=== PATIENT | male | born 1975 | race African-American/Black ===

== ENCOUNTER 2020-11-30 08:20 | Inpatient (IN) ==
[2020-11-30 09:36] LABS: Basophils % 0.3 % (0.0-0.8); Eosinophils # 0.1 10*3/uL (0.0-0.87); Eosinophils % 1.2 % (0.00-10.9); Hematocrit 35.8 VOL% (42.0-52.0); Hemoglobin 11.7 GM/DL (14.0-18.0); Immature Granulocytes % 0.3 %; Immature Granulocytes Absolute 0.02 #; Lymphocytes # 1.5 10*3/uL (1.4-4.0); Lymphocytes % 20.3 % (21.2-54.2); Mean Corpuscular HGB Conc 32.7 GM/DL (32-36); Mean Corpuscular Volume 78.5 FL (87-102); Mean Platelet Volume 8.2 FL (9.6-12.0); Monocytes % 6.9 % (1.7-12.7); Platelet Count 396 T/CUMM (130-400); Red Blood Count 4.56 MC/CUMM (3.8-5.5); White Blood Count 7.6 T/CUMM (4-12)
[2020-11-30 09:59] LABS: Albumin 3.3 G/DL (3.4-5.0); Bilirubin,Total 0.5 MG/DL (0.20-1.00); Calcium 9.4 MG/DL (8.5-10.1); Osmolality,Calculated 274.7 MOS/KG (273-304); Potassium 3.4 MMOL/L (3.5-5.1); Total Protein 8.7 G/DL (6.4-8.2)
[2020-11-30 10:24] LABS: Bilirubin,Urine Negative (Negative); Blood, Urine Small mg/dL (Negative); Glucose,Urine (UA) Negative (Negative); Ketones,Urine 20 mg/dL (Negative); Mucus,Urine Occasional /LPF (Occasional); Nitrite,Urine Negative (Negative); Protein,Urine 30 MG/DL; RBC,Urine 10 /HPF (0-4); Squamous Epithelial Cell,Urine Occasional /HPF (0-10); Urine Appearance CLEAR (Clear); Urine Color Yellow (Yellow); Urine Specific Gravity 1.017 (1.001-1.035)
[2020-11-30] MEDS ORDERED: PIPERACILLIN/TAZOBACTAM 3,375 MG in SODIUM CHLORIDE 0.9% 100 ML IV STA (11:08)
[2020-11-30] MEDS ORDERED: ONDANSETRON 4 MG/2 ML VIAL IV PRN (11:09)
[2020-11-30] MEDS ORDERED: SODIUM CHLORIDE 0.9% 100 ML IV ONE (11:12)
[2020-11-30] MEDS ORDERED: PIPERACILLIN/TAZOBACTAM 3,375 MG VIAL IV ONE (11:12)
[2020-11-30] MEDS: LACTATED RINGERS 1,000 ML IV SCH ×2 (12:42→16:29)
[2020-11-30] MEDS: PIPERACILLIN/TAZOBACTAM 3,375 MG in SODIUM CHLORIDE 0.9% 100 ML IV SCH ×2 (13:43→20:50)
[2020-12-01] MEDS: LACTATED RINGERS 1,000 ML IV SCH ×3 (02:30→21:15)
[2020-12-01] MEDS: PIPERACILLIN/TAZOBACTAM 3,375 MG in SODIUM CHLORIDE 0.9% 100 ML IV SCH ×3 (02:30→21:15)
[2020-12-01 06:25] LABS: Basophils % 0.5 % (0.0-0.8); Eosinophils # 0.2 10*3/uL (0.0-0.87); Eosinophils % 1.9 % (0.00-10.9); Hematocrit 35.3 VOL% (42.0-52.0); Hemoglobin 12.1 GM/DL (14.0-18.0); Immature Granulocytes % 0.5 %; Immature Granulocytes Absolute 0.04 #; Lymphocytes # 1.7 10*3/uL (1.4-4.0); Lymphocytes % 22.1 % (21.2-54.2); Mean Corpuscular HGB Conc 34.3 GM/DL (32-36); Mean Platelet Volume 10.6 FL (9.6-12.0); Monocytes % 6.5 % (1.7-12.7); Neutrophils % 68.5 % (38.7-73.9); Platelet Count 331 T/CUMM (130-400); Red Blood Count 4.47 MC/CUMM (3.8-5.5); Red Cell Distribution Width 12.5 % (9.3-17.3); White Blood Count 7.8 T/CUMM (4-12)
[2020-12-01 06:45] LABS: Albumin 2.9 G/DL (3.4-5.0); Bilirubin,Total 0.4 MG/DL (0.20-1.00); Calcium 9.2 MG/DL (8.5-10.1); Osmolality,Calculated 279.4 MOS/KG (273-304); Potassium 3.3 MMOL/L (3.5-5.1); Total Protein 7.8 G/DL (6.4-8.2)
[2020-12-01] MEDS: PANTOPRAZOLE 40 MG TABLET PO SCH (08:16)
[2020-12-01] MEDS ORDERED: HYDROmorphone 2 MG/1 ML VIAL IV PRN (20:58)
[2020-12-02] MEDS: PIPERACILLIN/TAZOBACTAM 3,375 MG in SODIUM CHLORIDE 0.9% 100 ML IV SCH ×3 (04:10→21:40)
[2020-12-02 06:47] LABS: Basophils % 0.2 % (0.0-0.8); Eosinophils # 0.2 10*3/uL (0.0-0.87); Eosinophils % 1.7 % (0.00-10.9); Hematocrit 36.6 VOL% (42.0-52.0); Hemoglobin 11.9 GM/DL (14.0-18.0); Immature Granulocytes % 0.2 %; Immature Granulocytes Absolute 0.02 #; Lymphocytes % 22.1 % (21.2-54.2); Mean Corpuscular HGB Conc 32.5 GM/DL (32-36); Mean Corpuscular Volume 78.9 FL (87-102); Mean Platelet Volume 8.2 FL (9.6-12.0); Monocytes % 6.5 % (1.7-12.7); Neutrophils % 69.3 % (38.7-73.9); Platelet Count 386 T/CUMM (130-400); Red Blood Count 4.64 MC/CUMM (3.8-5.5); White Blood Count 8.9 T/CUMM (4-12)
[2020-12-02] MEDS: PANTOPRAZOLE 40 MG TABLET PO SCH (09:39)
[2020-12-02] MEDS: LACTATED RINGERS 1,000 ML IV SCH ×3 (09:39→21:36)
[2020-12-03] MEDS: PIPERACILLIN/TAZOBACTAM 3,375 MG in SODIUM CHLORIDE 0.9% 100 ML IV SCH ×3 (03:49→20:28)
[2020-12-03 07:36] LABS: Basophils % 0.3 % (0.0-0.8); Eosinophils # 0.1 10*3/uL (0.0-0.87); Eosinophils % 1.5 % (0.00-10.9); Immature Granulocytes % 0.3 %; Immature Granulocytes Absolute 0.03 #; Lymphocytes # 2.1 10*3/uL (1.4-4.0); Lymphocytes % 21.6 % (21.2-54.2); Mean Corpuscular HGB Conc 32.4 GM/DL (32-36); Mean Corpuscular Volume 79.4 FL (87-102); Mean Platelet Volume 9.2 FL (9.6-12.0); Monocytes % 6.4 % (1.7-12.7); Neutrophils % 69.9 % (38.7-73.9); Platelet Count 326 T/CUMM (130-400); Red Blood Count 4.66 MC/CUMM (3.8-5.5); Red Cell Distribution Width 12.1 % (9.3-17.3); White Blood Count 9.6 T/CUMM (4-12)
[2020-12-03] MEDS: PANTOPRAZOLE 40 MG TABLET PO SCH (09:30)
[2020-12-03] MEDS: HYDROmorphone 2 MG/1 ML VIAL IV PRN ×2 (12:43→20:29)
[2020-12-03] MEDS: LACTATED RINGERS 1,000 ML IV SCH (20:32)
[2020-12-04] MEDS: PIPERACILLIN/TAZOBACTAM 3,375 MG in SODIUM CHLORIDE 0.9% 100 ML IV SCH ×2 (05:06→11:05)
[2020-12-04] MEDS: HYDROmorphone 2 MG/1 ML VIAL IV PRN ×2 (07:42→11:05)
[2020-12-04 08:19] LABS: Basophils % 0.2 % (0.0-0.8); Eosinophils # 0.1 10*3/uL (0.0-0.87); Eosinophils % 0.8 % (0.00-10.9); Hematocrit 35.8 VOL% (42.0-52.0); Hemoglobin 11.9 GM/DL (14.0-18.0); Immature Granulocytes % 0.4 %; Immature Granulocytes Absolute 0.06 #; Lymphocytes # 1.5 10*3/uL (1.4-4.0); Lymphocytes % 10.7 % (21.2-54.2); Mean Corpuscular HGB Conc 33.2 GM/DL (32-36); Mean Corpuscular Volume 79.2 FL (87-102); Mean Platelet Volume 8.3 FL (9.6-12.0); Monocytes % 4.5 % (1.7-12.7); Neutrophils % 83.4 % (38.7-73.9); Platelet Count 392 T/CUMM (130-400); Red Blood Count 4.52 MC/CUMM (3.8-5.5); Red Cell Distribution Width 12.1 % (9.3-17.3); White Blood Count 13.6 T/CUMM (4-12)
[2020-12-04 08:34] LABS: Calcium 8.6 MG/DL (8.5-10.1); Potassium 3.7 MMOL/L (3.5-5.1)
[2020-12-04] MEDS: PANTOPRAZOLE 40 MG TABLET PO SCH (09:34)
[2020-12-04] MEDS: LACTATED RINGERS 1,000 ML IV SCH ×2 (10:48→14:49)
[2020-12-04] MEDS: ACETAMINOPHEN 325 MG TABLET PO PRN ×2 (12:34→20:35)
[2020-12-04] MEDS ORDERED: MEROPENEM 2,000 MG in SODIUM CHLORIDE 0.9% 100 ML IV SCH (13:30)
[2020-12-04] MEDS: MEROPENEM 500 MG in SODIUM CHLORIDE 0.9% 100 ML IV SCH ×2 (14:03→20:35)
[2020-12-04] MEDS: VANCOMYCIN INJ 1,250 MG in SODIUM CHLORIDE 0.9% 250 ML IV SCH (14:48)
[2020-12-05] MEDS: LACTATED RINGERS 1,000 ML IV SCH ×3 (02:35→14:48)
[2020-12-05] MEDS: MEROPENEM 500 MG in SODIUM CHLORIDE 0.9% 100 ML IV SCH ×4 (02:44→20:38)
[2020-12-05] MEDS: HYDROmorphone 2 MG/1 ML VIAL IV PRN ×4 (03:43→22:24)
[2020-12-05] MEDS: VANCOMYCIN INJ 1,250 MG in SODIUM CHLORIDE 0.9% 250 ML IV SCH ×2 (03:44→15:46)
[2020-12-05 07:55] LABS: Basophils % 0.2 % (0.0-0.8); Eosinophils # 0.1 10*3/uL (0.0-0.87); Eosinophils % 0.5 % (0.00-10.9); Hematocrit 34.2 VOL% (42.0-52.0); Immature Granulocytes % 0.6 %; Immature Granulocytes Absolute 0.11 #; Lymphocytes # 1.5 10*3/uL (1.4-4.0); Lymphocytes % 8.7 % (21.2-54.2); Mean Corpuscular HGB Conc 32.2 GM/DL (32-36); Mean Corpuscular Volume 79.4 FL (87-102); Mean Platelet Volume 8.4 FL (9.6-12.0); Monocytes % 4.9 % (1.7-12.7); Neutrophils % 85.1 % (38.7-73.9); Platelet Count 385 T/CUMM (130-400); Red Blood Count 4.31 MC/CUMM (3.8-5.5); Red Cell Distribution Width 12.1 % (9.3-17.3); White Blood Count 17.2 T/CUMM (4-12)
[2020-12-05 08:07] LABS: Calcium 8.6 MG/DL (8.5-10.1); Osmolality,Calculated 273.7 MOS/KG (273-304); Potassium 3.5 MMOL/L (3.5-5.1)
[2020-12-05] MEDS: PANTOPRAZOLE 40 MG TABLET PO SCH (08:19)
[2020-12-05] MEDS: ACETAMINOPHEN 325 MG TABLET PO PRN (15:47)
[2020-12-06] MEDS: LACTATED RINGERS 1,000 ML IV SCH ×3 (01:33→20:04)
[2020-12-06] MEDS: MEROPENEM 500 MG in SODIUM CHLORIDE 0.9% 100 ML IV SCH ×4 (01:35→20:00)
[2020-12-06] MEDS: VANCOMYCIN INJ 1,250 MG in SODIUM CHLORIDE 0.9% 250 ML IV SCH ×2 (02:38→15:00)
[2020-12-06] MEDS: HYDROmorphone 2 MG/1 ML VIAL IV PRN ×3 (04:44→16:55)
[2020-12-06] MEDS: PANTOPRAZOLE 40 MG TABLET PO SCH (08:54)
[2020-12-06] MEDS ORDERED: MIDAZOLAM 2 MG/2 ML VIAL ONE (13:27)
[2020-12-06] MEDS ORDERED: ROCURONIUM 50 MG/5 ML VIAL IV ONE (13:27)
[2020-12-06] MEDS ORDERED: LIDOCAINE 2% 5 ML VIAL ONE (13:27)
[2020-12-06] MEDS ORDERED: fentaNYL 100 MCG/2 ML VIAL ONE ×3 (13:27→16:05)
[2020-12-06] MEDS ORDERED: propofoL 200 MG/20 ML VIAL IV ONE ×2 (13:27→14:06)
[2020-12-06] MEDS ORDERED: LACTATED RINGERS 1,000 ML IV SCH (13:30)
[2020-12-06] MEDS ORDERED: ACETAMINOPHEN INJ 1,000 MG/100 ML VIAL IV ONE (14:07)
[2020-12-06] MEDS ORDERED: SUCCINYLCHOLINE 200 MG/10 ML VIAL ONE (14:07)
[2020-12-06] MEDS ORDERED: DEXAMETHASONE 4 MG/1 ML VIAL ONE ×2 (14:11→14:50)
[2020-12-06] MEDS ORDERED: ONDANSETRON 4 MG/2 ML VIAL ONE (14:18)
[2020-12-06] MEDS ORDERED: ROPIVACAINE 0.5% 30 ML VIAL ONE (14:50)
[2020-12-06] MEDS ORDERED: LACTATED RINGERS 1,000 ML IV ONE (15:14)
[2020-12-06] MEDS ORDERED: SUGAMMADEX 200 MG/2 ML VIAL IV ONE (15:54)
[2020-12-06 16:07] LABS: Bilirubin,Urine Negative (Negative); Blood, Urine Small mg/dL (Negative); Glucose,Urine (UA) Negative (Negative); Hyaline Casts,Urine 1 /LPF (0-3); Ketones,Urine Negative (Negative); Nitrite,Urine Negative (Negative); Protein,Urine Negative; RBC,Urine 7 /HPF (0-4); Squamous Epithelial Cell,Urine Occasional /HPF (0-10); Urine Appearance CLEAR (Clear); Urine Color Straw (Yellow); Urine Specific Gravity 1.005 (1.001-1.035); Urine Urobilinogen < 2.0 EU/DL (0.2-1.0)
[2020-12-06] MEDS ORDERED: ONDANSETRON 4 MG/2 ML VIAL IV PRN (16:46)
[2020-12-06 17:21] LABS: Hematocrit 38.5 VOL% (42.0-52.0); Hemoglobin 12.3 GM/DL (14.0-18.0)
[2020-12-06] MEDS: VANCOMYCIN INJ 1,500 MG in SODIUM CHLORIDE 0.9% 500 ML IV SCH (20:53)
[2020-12-07 01:08] LABS: Hematocrit 33.9 VOL% (42.0-52.0)
[2020-12-07] MEDS: MEROPENEM 500 MG in SODIUM CHLORIDE 0.9% 100 ML IV SCH ×4 (01:16→23:20)
[2020-12-07] MEDS: LACTATED RINGERS 1,000 ML IV SCH ×3 (03:09→14:14)
[2020-12-07] MEDS: HYDROmorphone 2 MG/1 ML VIAL IV PRN ×5 (03:15→21:56)
[2020-12-07 05:32] LABS: Basophils % 0.1 % (0.0-0.8); Hematocrit 33.6 VOL% (42.0-52.0); Hemoglobin 10.9 GM/DL (14.0-18.0); Immature Granulocytes % 1.1 %; Immature Granulocytes Absolute 0.17 #; Lymphocytes # 0.8 10*3/uL (1.4-4.0); Lymphocytes % 5.2 % (21.2-54.2); Mean Corpuscular HGB Conc 32.4 GM/DL (32-36); Mean Corpuscular Volume 79.4 FL (87-102); Mean Platelet Volume 8.4 FL (9.6-12.0); Monocytes % 2.6 % (1.7-12.7); Platelet Count 416 T/CUMM (130-400); Red Blood Count 4.23 MC/CUMM (3.8-5.5); Red Cell Distribution Width 12.3 % (9.3-17.3); White Blood Count 16.1 T/CUMM (4-12)
[2020-12-07 05:59] LABS: Hypochromasia 1+; Lymphocytes 5 % (20-55); Microcytosis 1+; Platelet Estimate Adequate; Segmented Neutrophils 93 % (50-85); Total Cells Counted 100
[2020-12-07 06:05] LABS: Calcium 8.7 MG/DL (8.5-10.1); Osmolality,Calculated 274.7 MOS/KG (273-304); Potassium 4.1 MMOL/L (3.5-5.1)
[2020-12-07 09:06] LABS: Hematocrit 33.3 VOL% (42.0-52.0); Hemoglobin 10.7 GM/DL (14.0-18.0)
[2020-12-07] MEDS: PANTOPRAZOLE 40 MG TABLET PO SCH (09:09)
[2020-12-07] MEDS: VANCOMYCIN INJ 1,500 MG in SODIUM CHLORIDE 0.9% 500 ML IV SCH ×2 (10:36→20:13)
[2020-12-08] MEDS: LACTATED RINGERS 1,000 ML IV SCH ×3 (04:48→18:23)
[2020-12-08] MEDS: MEROPENEM 500 MG in SODIUM CHLORIDE 0.9% 100 ML IV SCH ×4 (04:49→23:17)
[2020-12-08] MEDS: HYDROmorphone 2 MG/1 ML VIAL IV PRN ×4 (04:50→21:02)
[2020-12-08] MEDS: PANTOPRAZOLE 40 MG TABLET PO SCH (08:04)
[2020-12-08] MEDS: VANCOMYCIN INJ 1,500 MG in SODIUM CHLORIDE 0.9% 500 ML IV SCH ×2 (08:07→20:01)
[2020-12-08] MEDS ORDERED: FLUCONAZOLE INJ 200 MG/100 ML PREMIX IV SCH (09:00)
[2020-12-08] MEDS: FLUCONAZOLE INJ 400 MG/200 ML PREMIX IV SCH (11:42)
[2020-12-09] MEDS: HYDROmorphone 2 MG/1 ML VIAL IV PRN ×5 (01:17→20:32)
[2020-12-09] MEDS: MEROPENEM 500 MG in SODIUM CHLORIDE 0.9% 100 ML IV SCH ×4 (04:51→22:56)
[2020-12-09] MEDS: LACTATED RINGERS 1,000 ML IV SCH (06:05)
[2020-12-09] MEDS ORDERED: fentaNYL 100 MCG/2 ML VIAL ONE (06:57)
[2020-12-09] MEDS ORDERED: MIDAZOLAM 2 MG/2 ML VIAL ONE (06:57)
[2020-12-09] MEDS ORDERED: LIDOCAINE 2% 5 ML VIAL ONE (07:17)
[2020-12-09] MEDS ORDERED: propofoL 200 MG/20 ML VIAL IV ONE (07:17)
[2020-12-09] MEDS ORDERED: ROCURONIUM 50 MG/5 ML VIAL IV ONE (07:17)
[2020-12-09] MEDS ORDERED: GLYCOPYRROLATE 0.4 MG/2 ML VIAL ONE ×3 (07:39→07:52)
[2020-12-09] MEDS ORDERED: NEOSTIGMINE 10 MG/10 ML VIAL ONE (07:39)
[2020-12-09] MEDS ORDERED: HYDROmorphone 2 MG/1 ML VIAL IV PRN (08:13)
[2020-12-09] MEDS ORDERED: hydrALAZINE 20 MG/1 ML VIAL IV ONE (08:14)
[2020-12-09] MEDS: PANTOPRAZOLE 40 MG TABLET PO SCH (09:08)
[2020-12-09] MEDS: VANCOMYCIN INJ 1,500 MG in SODIUM CHLORIDE 0.9% 500 ML IV SCH (09:08)
[2020-12-09] MEDS: FLUCONAZOLE INJ 400 MG/200 ML PREMIX IV SCH (12:21)
[2020-12-10] MEDS: LACTATED RINGERS 1,000 ML IV SCH ×2 (02:07→11:36)
[2020-12-10] MEDS: HYDROmorphone 2 MG/1 ML VIAL IV PRN ×5 (02:10→22:39)
[2020-12-10] MEDS: MEROPENEM 500 MG in SODIUM CHLORIDE 0.9% 100 ML IV SCH ×4 (04:44→23:19)
[2020-12-10 08:01] LABS: Basophils % 0.1 % (0.0-0.8); Eosinophils # 0.1 10*3/uL (0.0-0.87); Eosinophils % 0.4 % (0.00-10.9); Hematocrit 33.6 VOL% (42.0-52.0); Immature Granulocytes % 0.4 %; Immature Granulocytes Absolute 0.06 #; Lymphocytes # 2.6 10*3/uL (1.4-4.0); Lymphocytes % 16.9 % (21.2-54.2); Mean Corpuscular HGB Conc 32.7 GM/DL (32-36); Mean Corpuscular Volume 78.7 FL (87-102); Mean Platelet Volume 8.8 FL (9.6-12.0); Neutrophils % 77.2 % (38.7-73.9); Platelet Count 565 T/CUMM (130-400); Red Blood Count 4.27 MC/CUMM (3.8-5.5); Red Cell Distribution Width 12.3 % (9.3-17.3); White Blood Count 15.1 T/CUMM (4-12)
[2020-12-10 08:28] LABS: Calcium 9.2 MG/DL (8.5-10.1); Osmolality,Calculated 275.7 MOS/KG (273-304); Potassium 3.5 MMOL/L (3.5-5.1)
[2020-12-10] MEDS: PANTOPRAZOLE 40 MG TABLET PO SCH (08:37)
[2020-12-10] MEDS: FLUCONAZOLE INJ 400 MG/200 ML PREMIX IV SCH (10:04)
[2020-12-10] MEDS: ENOXAPARIN 40 MG/0.4 ML SYRINGE SUBCUT SCH (14:17)
[2020-12-11] MEDS: HYDROmorphone 2 MG/1 ML VIAL IV PRN ×2 (02:56→20:53)
[2020-12-11] MEDS: LACTATED RINGERS 1,000 ML IV SCH ×3 (03:01→20:57)
[2020-12-11] MEDS: MEROPENEM 500 MG in SODIUM CHLORIDE 0.9% 100 ML IV SCH ×4 (05:39→23:53)
[2020-12-11] MEDS: PANTOPRAZOLE 40 MG TABLET PO SCH (08:43)
[2020-12-11] MEDS: FLUCONAZOLE INJ 400 MG/200 ML PREMIX IV SCH (10:25)
[2020-12-11] MEDS: ENOXAPARIN 40 MG/0.4 ML SYRINGE SUBCUT SCH (13:16)
[2020-12-12] MEDS: LACTATED RINGERS 1,000 ML IV SCH ×2 (07:09→11:39)
[2020-12-12] MEDS: PANTOPRAZOLE 40 MG TABLET PO SCH (09:11)
[2020-12-12] MEDS: FLUCONAZOLE INJ 400 MG/200 ML PREMIX IV SCH (09:12)
[2020-12-12] MEDS: ENOXAPARIN 40 MG/0.4 ML SYRINGE SUBCUT SCH (15:02)
[2020-12-12] MEDS: HYDROmorphone 2 MG/1 ML VIAL IV PRN (17:25)
[2020-12-13] MEDS: PANTOPRAZOLE 40 MG TABLET PO SCH (09:18)
[2020-12-13] MEDS: FLUCONAZOLE INJ 400 MG/200 ML PREMIX IV SCH (09:18)
[2020-12-13] MEDS: ENOXAPARIN 40 MG/0.4 ML SYRINGE SUBCUT SCH (14:17)
[2020-12-13] MEDS: LACTATED RINGERS 1,000 ML IV SCH ×2 (15:59→19:11)
[2020-12-14] MEDS: LACTATED RINGERS 1,000 ML IV SCH ×3 (06:15→21:59)
[2020-12-14] MEDS: FLUCONAZOLE INJ 400 MG/200 ML PREMIX IV SCH (09:31)
[2020-12-14] MEDS: PANTOPRAZOLE 40 MG TABLET PO SCH (09:31)
[2020-12-14] MEDS: HYDROmorphone 2 MG/1 ML VIAL IV PRN (13:56)
[2020-12-14] MEDS: ENOXAPARIN 40 MG/0.4 ML SYRINGE SUBCUT SCH (14:29)
[2020-12-15] MEDS: HYDROmorphone 2 MG/1 ML VIAL IV PRN ×2 (06:20→20:47)
[2020-12-15] MEDS: PANTOPRAZOLE 40 MG TABLET PO SCH (08:59)
[2020-12-15] MEDS: FLUCONAZOLE INJ 400 MG/200 ML PREMIX IV SCH (09:00)
[2020-12-15] MEDS: LACTATED RINGERS 1,000 ML IV SCH (13:48)
[2020-12-15] MEDS: ENOXAPARIN 40 MG/0.4 ML SYRINGE SUBCUT SCH (14:30)
[2020-12-16] MEDS: LACTATED RINGERS 1,000 ML IV SCH (03:08)
[2020-12-16] MEDS: HYDROmorphone 2 MG/1 ML VIAL IV PRN (03:08)
[2020-12-16] MEDS: PANTOPRAZOLE 40 MG TABLET PO SCH (09:03)
[2020-12-16 11:27] VITALS: BP 139/86
== END 2020-12-16 12:31 | disposition home health service (06) | DRG 330 ==
LOC: N.ED 08:20 → N.EDINP 08:20 → N.3E 13:46
PROVIDERS: ADMIT Student in an Organized Health Care Education/Training Program; ATTEND Surgery